=== PATIENT | female | born 1940 | race Caucasian/White ===

== ENCOUNTER → 2018-12-22 | Outpatient (CLI) | payer MEDICARE, OTHER ==
[~2018-12-22] MED LIST: ACTOS 30 MG TAB30 MG PO; ALBUTEROL2.5 MG/0.5 INH; AZITHROMYCIN 2250 MG PO; BENTYL 20 MG TA20 M1 PO; CELEXA20 MG PO; DIOVAN HCT 80-1 EACH PO; DUONEB 2.5-0.5 M3 ML INH; ESTRADIOL0.5 MG PO; GLUCOTROL5 MG PO; LEVOTHYROXINE0.05 MG PO; LEXAPRO20 MG PO; METFORMIN 500500 MG PO; METFORMIN HCL500 MG PO; MIRALAX17 GM PO; MIRAPEX0.5 MG PO; MUCINEX TA600 MG/TA2 PO; OMEPRAZOLE; PRAVACHOL40 MG PO; PREDNISONE 10 M10 MG PO; WELCHOL 625 MG625 M1 PO; ZPAK PO; ZYRTEC10 MG PO
--- NOTE | 2018-12-22 17:20 | 2DMMODE ---
[place] [address] 2 D/M-MODE ECHOCARDIOGRAM Name: SHEMAR CRISTOBAL Brent Room: [facility]#: [id number] Admission: 12/22/18 Attend Phys: Sarmad Cazares, Discharge: Date of : 40 Date of Service: 12/22/18 1720 Report #: [id number] THIS REPORT FOR: //name// APPROVED REPORT Study performed: 12/22/2018 13:04:01 EXAM: Comprehensive 2D, Doppler, and color-flow Echocardiogram Patient Location: Out-Patient BSA: 2.08 HR: 61 bpm BP: 150/72 mmHg Other Information Study Quality: Fair Indications Congestive Heart Failure Dyspnea 2D Dimensions IVSd: 10.72 (7-11mm) LVOT Diam: 20.04 (18-24mm) LVDd: 42.61 mm PWd: 9.77 (7-11mm) Ascending Ao: 26.94 (22-36mm) LVDs: 25.73 (25-40mm) Aortic Root: 24.77 mm Volumes Left Atrial Volume (Systole) LA ESV Index: 9.10 mL/m2 Aortic Valve AoV Peak Luis Angel.: 1.52 m/s AO Peak Gr.: 9.19 mmHg LVOT Max P.58 mmHg AO Mean Gr.: 5.11 mmHg LVOT Mean P.20 mmHg LVOT Max V: 1.07 m/s AO V2 VTI: 34.54 cm LVOT Mean V: 0.68 m/s VINCENT (VTI): 2.33 cm2 LVOT V1 VTI: 25.54 cm Mitral Valve E/A Ratio: 1.15 MV Decel. Time: 174.04 ms MV E Max Luis Angel.: 0.81 m/s MV PHT: 50.47 [place] [address] 2 D/M-MODE ECHOCARDIOGRAM Name: SHEMAR CRISTOBAL Room: [facility]#: [id number] Admission: 12/22/18 Attend Phys: Sarmad Cazares, Discharge: Date of : 40 Date of Service: 12/22/18 1720 Report #: [id number] MVA (PHT): 4.36 cm2 TDI E/Lateral E': 9.00 E/Medial E': 9.00 Medial E' Luis Angel.: 0.09 m/s Lateral E' Luis Angel.: 0.09 m/s Pulmonary Valve PV Peak Luis Angel.: 0.77 m/s PV Peak Gr.: 2.35 mmHg Tricuspid Valve RAP Estimate: 5.00 mmHg TR Peak Gr.: 27.88 mmHg RVSP: 32.88 mmHg PA Pressure: 32.88 mmHg Left Ventricle The left ventricle is normal size. There is normal LV segmental wall motion. There is normal left ventricular wall thickness. Left ventricular systolic function is normal. LVEF is 55-60%. Left ventricular filling pattern is normal for age. Right Ventricle The right ventricle is normal size. The right ventricular systolic function is normal. Atria The left atrium size is normal. The right atrium size is normal. Aortic Valve The aortic valve is normal in structure. No aortic regurgitation is present. There is no aortic valvular stenosis. Mitral Valve The mitral valve is normal in structure. There is no mitral valve regurgitation noted. No evidence of mitral valve stenosis. Tricuspid Valve The tricuspid valve is normal in structure. Mild tricuspid regurgitation. No pulmonary hypertension. Pulmonic Valve The pulmonary valve is normal in structure. There is no pulmonic valvular regurgitation. [place] [address] 2 D/M-MODE ECHOCARDIOGRAM Name: SHEMAR CRISTOBAL Room: [facility]#: [id number] Admission: 12/22/18 Attend Phys: Sarmad Cazares, Discharge: Date of : 40 Date of Service: 12/22/18 1720 Report #: [id number] The aortic root is normal in size. IVC is normal in size and collapses >50% with inspiration. Pericardium There is no pericardial effusion. <Conclusion> The left ventricle is normal size. There is normal left ventricular wall thickness. Left ventricular systolic function is normal. LVEF is 55-60%. Left ventricular filling pattern is normal for age. Mild tricuspid regurgitation. No pulmonary hypertension. IVC is normal in size and collapses >50% with inspiration. <ELECTRONICALLY SIGNED> By: Pedro Sarmiento MD, FACC 12/22/181719 19 19 Pedro Sarmiento MD, FACC /INF
== END ==
LOC: M.CRD 13:00
DX: I07.1 Rheumatic tricuspid insufficiency (principal); E11.9 Type 2 diabetes mellitus without complications; E03.9 Hypothyroidism, unspecified; E55.9 Vitamin D deficiency, unspecified; E53.8 Deficiency of other specified B group vitamins; Z79.4 Long term (current) use of insulin